=== PATIENT | female | born 1990 | race Caucasian/White ===

== ENCOUNTER 2021-06-03 00:20 | Emergency (ER) | payer OTHER ==
[2021-06-03] MEDS ORDERED: Ibuprofen 200 MG TAB ONE (01:25)
[2021-06-03] MEDS ORDERED: Acetaminophen 500 MG TAB ONE (01:26)
== END 2021-06-03 01:28 | disposition home or self-care (01) ==
LOC: CSHERS 00:20
DX: S01.81XA Laceration without foreign body of other part of head, initial encounter (principal); W54.1XXA Struck by dog, initial encounter
CPT/HCPCS: 12011